=== PATIENT | female | born 1995 | race Caucasian/White ===

== ENCOUNTER 2020-08-06 05:50 | Inpatient (IN) | payer BC, OTHER ==
[~2020-08-06] VITALS: Ht 170.2 cm; Wt 91.1 kg
[2020-08-06] VITALS (25 sets, daily range): BP systolic 97–151; BP diastolic 59–88
[2020-08-06] MEDS ORDERED: D5 LR IV SOLUTION 1,000 ML IV ONE (06:07)
[2020-08-06] MEDS ORDERED: AMPICILLIN FOR IV USE 2,000 MG in WATER (STERILE) FOR INJECTION 14.8 ML IV SCH (06:14)
[2020-08-06] MEDS ORDERED: MINERAL OIL CONCENTRATE 99.9% 15 ML UDC TOP PRN (06:15)
[2020-08-06] MEDS: D5 LR IV SOLUTION 1,000 ML IV SCH ×2 (06:41→14:06)
[2020-08-06 06:48] LABS: BASOPHILS % (AUTO) 0 % (0-10); EOSINOPHILS % (AUTO) 0 % (0-10); HEMATOCRIT 40 % (35-52); HEMOGLOBIN 13.6 g/dL (11.5-16.0); LYMPHOCYTES # (AUTO) 1.4 10^3/uL (1.0-4.0); LYMPHOCYTES % (AUTO) 8 % (12-44); MEAN CORPUSCULAR HEMOGLOBIN 30 pg (25-34); MEAN CORPUSCULAR HGB CONC 34 g/dL (32-36); MEAN CORPUSCULAR VOLUME 89 fL (80-99); MEAN PLATELET VOLUME 11.4 fL (9.0-12.2); MONOCYTES # (AUTO) 0.7 10^3/uL (0.0-1.0); MONOCYTES % (AUTO) 4 % (0-12); NEUTROPHILS # (AUTO) 14.1 10^3/uL (1.8-7.8); NEUTROPHILS % (AUTO) 87 % (42-75); PLATELET COUNT 268 10^3/uL (130-400); WHITE BLOOD COUNT 16.2 10^3/uL (4.3-11.0)
[2020-08-06 07:09] LABS: LYMPHOCYTES % (MANUAL) 11 %; MONOCYTES % (MANUAL) 5 %; NEUTROPHILS % (MANUAL) 84 %; RBC MORPH NORMAL
[2020-08-06 07:51] LABS: BILIRUBIN,URINE NEGATIVE (NEGATIVE); CLARITY,URINE CLEAR; COLOR,URINE YELLOW; GLUCOSE, URINE (UA) NEGATIVE (NEGATIVE); KETONES,URINE NEGATIVE (NEGATIVE); LEUKOCYTE ESTERASE ,URINE 2+ (NEGATIVE); NITRITE,URINE NEGATIVE (NEGATIVE); PH,URINE 6.5 (5-9); PROTEIN,URINE TRACE (NEGATIVE)
[2020-08-06 07:53] LABS: BACTERIA,URINE LARGE /HPF; SQUAMOUS EPITHELIAL CELL,UR 25-50 /HPF; WBC,URINE 25-50 /HPF
[2020-08-06] MEDS: AMPICILLIN FOR IV USE 1,000 MG in WATER (STERILE) FOR INJECTION 7.4 ML IV SCH ×2 (10:50→14:06)
[2020-08-06] MEDS ORDERED: OXYTOCIN PRE-MIX DRIP 500 ML IV ONE ×2 (13:25→15:43)
[2020-08-06] MEDS ORDERED: LIDOCAINE/EPI 2% 1:200,00 (XYLOCAINE) 10 ML VIAL ONE ×2 (13:35→15:26)
--- NOTE | 2020-08-06 13:56 | History & Physical-OB ---
OB - Chief Complaint & HPI Date/Time Date of Admission: Date of Admission: Aug 06, 2020 at 06:11 Date seen by a Provider: Aug 06, 2020 Time Seen by a Provider: 08:00 Chief Complaint/History OB-Reason for Admission/Chief: Onset of Labor Hx : 1 Hx Para: 0 Expected Date of Delivery: Aug 07, 2020 Gestational Age in Weeks: 39 Gestational Age in Days: 6 History of Labs A+, antibody neg, RNI. HIV/HepB/RPR NR. GC/chlamydia neg. Glucola normal. GBS pos. Allergies and Home Medications Allergies Coded Allergies: No Known Drug Allergies (Unverified , 08/06/20) Home Medications Loratadine 10 Mg Tablet, 10 MG PO DAILY, (Reported) Magnesium Amino Acid Chelate 100 Mg Tablet, 100 MG PO DAILY, (Reported) Vit No.124/Iron/FA 1 Each Tablet, 1 EACH PO DAILY, (Reported) Patient Home Medication List Home Medication List Reviewed: Yes OB - History Hx of Present Ultrasounds: Normal mid trimester US Obstetrical Complications: None Obstetrical History Hx : 1 Hx Para: 0 Patient Past Medical History PMHx: Denies SurgHx: denies Social History/Family History Alcohol Use: Denies Use Recreational Drug Use: No Smoking Cessation: Never smoker Immunizations Tetanus Booster (TDap): Less than 5yrs (06/10/2020) Date of Influenza Vaccine: Mar 10, 2020 Rubella: not immune RPR/VDRL: Negative GBS Status: Positive HBsAG: Negative OB - Admission Exam Physical Exam Vitals: Vital Signs 08/06/20 08/06/20 12:42 13:00 Temp 36.8 Pulse 84 Resp 18 B/P (MAP) 139/83 (101) O2 Delivery Room Air HEENT: NCAT Abdomen: Non tender Extremities: Normal Cervical Dilatation: 5cm Effacement: 75% Heart Rate: 140's Accelerations: Accelerations Present Contractions on Admission: < 5 Minutes Apart Date/Time Contractions Began;: 08/05/20 at 10:30 pm Intensity: Moderate Labs Laboratory Tests Test 08/06/20 06:00 08/06/20 06:30 Range/Units Urine Color YELLOW Urine Clarity CLEAR Urine pH 6.5 5-9 Urine Specific [place] 1.010 L 1.016-1.022 Urine Protein TRACE H NEGATIVE Urine Glucose (UA) NEGATIVE NEGATIVE Urine Ketones NEGATIVE NEGATIVE Urine Nitrite NEGATIVE NEGATIVE Urine Bilirubin NEGATIVE NEGATIVE Urine Urobilinogen 0.2 < = 1.0 MG/DL Urine Leukocyte Esterase 2+ H NEGATIVE Urine RBC (Auto) 3+ H NEGATIVE Urine RBC 5-10 H /HPF Urine WBC 25-50 H /HPF Urine Squamous Epithelial Cells 25-50 H /HPF Urine Crystals NONE /LPF Urine Bacteria LARGE H /HPF Urine Casts NONE /LPF Urine Mucus NEGATIVE /LPF Urine Culture Indicated YES White Blood Count 16.2 H 4.3-11.0 10^3/uL Red Blood Count 4.51 3.80-5.11 10^6/uL Hemoglobin 13.6 11.5-16.0 g/dL Hematocrit 40 35-52 % Mean Corpuscular Volume 89 80-99 fL Mean Corpuscular Hemoglobin 30 25-34 pg Mean Corpuscular Hemoglobin Concent 34 32-36 g/dL Red Cell Distribution Width 13.1 10.0-14.5 % Platelet Count 268 130-400 10^3/uL Mean Platelet Volume 11.4 9.0-12.2 fL Immature Granulocyte % (Auto) 1 % Neutrophils (%) (Auto) 87 H 42-75 % Lymphocytes (%) (Auto) 8 L 12-44 % Monocytes (%) (Auto) 4 0-12 % Eosinophils (%) (Auto) 0 0-10 % Basophils (%) (Auto) 0 0-10 % Neutrophils # (Auto) 14.1 H 1.8-7.8 10^3/uL Lymphocytes # (Auto) 1.4 1.0-4.0 10^3/uL Monocytes # (Auto) 0.7 0.0-1.0 10^3/uL Eosinophils # (Auto) 0.0 0.0-0.3 10^3/uL Basophils # (Auto) 0.0 0.0-0.1 10^3/uL Immature Granulocyte # (Auto) 0.1 0.0-0.1 10^3/uL Neutrophils % (Manual) 84 % Lymphocytes % (Manual) 11 % Monocytes % (Manual) 5 % Blood Morphology Comment NORMAL OB - Assessment/Plan/Diagnosis Assessment Assessment: active labor, group B positive strep Admission Dx Active labor 39 weeks gestation GBS positive Rubella non-immune Admission Status: Inpatient Order (span 2 midnights) Reason for Inpatient Admission: labor, delivery and course Plan Plan: Expectant Management Other Plan Ampicillin for GBS pos MMR HOLLY HERNANDEZ MD Aug 06, 2020 13:56
[2020-08-06] MEDS ORDERED: CATHETER FLUSH 10 ML SYR IV SCH (14:00)
[2020-08-06] MEDS ORDERED: MAGN100T5 PO (14:09)
[2020-08-06] MEDS ORDERED: LORA10TA7 PO (14:09)
[2020-08-06] MEDS ORDERED: PREN-142 PO (14:09)
[2020-08-06] MEDS: OXYTOCIN PRE-MIX DRIP 500 ML IV SCH ×2 (15:18→15:48)
[2020-08-06] MEDS ORDERED: WITCH HAZEL(TUCKS) 40 EA JAR TOP PRN (16:15)
[2020-08-06] MEDS ORDERED: TETANUS,DIPTH,PERTUSS P/F (BOOSTRIX) 0.5 ML VIAL IM ONE (16:15)
[2020-08-06] MEDS ORDERED: BENZOCAINE/MENTHOL (DERMOPLAST) 60 ML CAN TP PRN (16:15)
[2020-08-06] MEDS ORDERED: MEASLES,MUMPS,RUBELLA 1 EA INJ SQ ONE (16:15)
--- NOTE | 2020-08-06 16:51 | OB Labor & Delivery Record ---
Vag Delivery Note Vag Delivery Note Date of Delivery: 08/06/20 Preoperative Diagnosis: Carol Waddell is a (24 /Para 1 / 0,Gestational Age (wks)39with 6 days Postoperative Diagnosis: Same Surgeon: HOLLY HERNANDEZ Anesthesia: None Delivery Type: Spontaneous vaginal delivery Findings: Viable female infant, apgars 9/9, weight 7#7 Lacerations: Right vaginal wall, right labial, second degree perineal, left periurethral Intact placenta with 3 vessel cord. No nuchal cord, body cord or shoulder dystocia Estimated Blood Loss: 400 ml Complications: None Condition: Stable Description of Procedure: The patient is a 24 year old female who presented in active labor. She was admitted and informed consent was obtained. Her labor course was unremarkable. She progressed to complete dilatation and began to push. She was then set up for delivery. The infant's head was delivered atraumatically in the KARTIK position. The shoulders and remainder of the infant's body were then delivered without difficulty. Upon delivery, the infant was vigorous and placed on maternal abdomen. After a delay, the cord was doubly clamped and cut and the remained on maternal abdomen. An intact placenta with 3-vessel cord delivered via [place]ien and there was found to be minimal bleeding.~ Vigorous fundal massage was performed and the fundus was found to be firm. IV oxytocin was given. Examination of the vagina and perineum revealed a right vaginal wall laceration repaired in simple running fashion with 3-0 rapide. Second degree perineal laceration repaired in the usual fashion with 3-0 rapide. Left periurethral laceration repaired in simple running fashion. Right labial external laceration repaired in subcutaneous running fashion with 3-0 rapide. Following the repair, sponge, instrument and needle counts were correct. Mom and baby were both in stable condition in the labor suite. Vitals - Labs Vital Signs - I&O Vital Signs Date Time Temp Pulse Resp B/P (MAP) Pulse Ox O2 Delivery O2 Flow Rate FiO2 08/06/20 16:30 36.8 90 18 126/72 (90) Room Air 08/06/20 16:15 100 18 144/69 (94) Room Air 08/06/20 16:04 99 18 139/79 (99) Room Air 08/06/20 16:00 109 18 118/59 (78) Room Air 08/06/20 15:30 144 18 141/85 (103) Room Air 08/06/20 15:00 88 18 133/82 (99) Room Air 08/06/20 14:30 90 18 125/77 (93) Room Air 08/06/20 14:00 90 18 123/73 (90) Room Air 08/06/20 13:30 113 18 131/84 (100) Room Air 08/06/20 13:00 84 18 139/83 (101) Room Air 08/06/20 12:42 36.8 08/06/20 12:30 18 Room Air 08/06/20 12:00 81 18 130/83 (99) Room Air 08/06/20 11:30 75 18 129/76 (93) Room Air 08/06/20 11:00 36.4 75 18 124/80 (95) Room Air 08/06/20 10:30 76 18 129/66 (87) Room Air 08/06/20 10:00 89 18 151/68 (95) Room Air 08/06/20 09:20 93 18 118/66 (83) Room Air 08/06/20 08:50 91 18 130/88 (102) Room Air 08/06/20 07:50 36.7 93 18 122/83 (96) Room Air 08/06/20 06:38 95 18 137/86 (103) Room Air 08/06/20 06:08 36.0 122 18 131/80 (97) 97 Room Air 08/06/20 06:08 36.0 122 18 97 Room Air Labs Laboratory Tests 08/06/20 06:00: Urine Color YELLOW, Urine Clarity CLEAR, Urine pH 6.5, Urine Specific [place] 1.010L, Urine Protein TRACEH, Urine Glucose (UA) NEGATIVE, Urine Ketones N EGATIVE, Urine Nitrite NEGATIVE, Urine Bilirubin NEGATIVE, Urine Urobilinogen 0.2, Urine Leukocyte Esterase 2+H, Urine RBC (Auto) 3+H, Urine RBC 5-10H, Urine WBC 25-50H, Urine Squamous Epithelial Cells 25-50H, Urine Crystals NONE, Urine Bacteria LARGEH, Urine Casts NONE, Urine Mucus NEGATIVE, Urine Culture Indicated YES 08/06/20 06:30: White Blood Count 16.2H, Red Blood Count 4.51, Hemoglobin 13.6, Hematocrit 40, Mean Corpuscular Volume 89, Mean Corpuscular Hemoglobin 30, Mean Corpuscular Hemoglobin Concent 34, Red Cell Distribution Width 13.1, Platelet Count 268, Mean Platelet Volume 11.4, Immature Granulocyte % (Auto) 1, Neutrophils (%) (Auto) 87H, Lymphocytes (%) (Auto) 8L, Monocytes (%) (Auto) 4, Eosinophils (%) (Auto) 0, Basophils (%) (Auto) 0, Neutrophils # (Auto) 14.1H, Lymphocytes # (Auto) 1.4, Monocytes # (Auto) 0.7, Eosinophils # (Auto) 0.0, Basophils # (Auto) 0.0, Immature Granulocyte # (Auto) 0.1, Neutrophils % (Manual) 84, Lymphocytes % (Manual) 11, Monocytes % (Manual) 5, Blood Morphology Comment NORMAL 08/06/20 10:13: HOLLY HERNANDEZ MD Aug 06, 2020 16:51
[2020-08-06] MEDS ORDERED: ACETAMINOPHEN 500 MG TAB (TYLENOL) ONE (17:37)
[2020-08-06] MEDS: IBUPROFEN 600 MG (MOTRIN) TAB PO SCH ×2 (17:43→23:30)
[2020-08-06] MEDS: ACETAMINOPHEN 500 MG TAB (TYLENOL) PO SCH (17:43)
[2020-08-06] MEDS: DOCUSATE SODIUM 100 MG (COLACE) CAP PO SCH (20:52)
[2020-08-07 01:08] VITALS: BP 113/61
[2020-08-07] MEDS: ACETAMINOPHEN 500 MG TAB (TYLENOL) PO SCH ×3 (03:54→21:32)
[2020-08-07 04:00] VITALS: BP 112/62
[2020-08-07 06:36] LABS: BASOPHILS % (AUTO) 0 % (0-10); EOSINOPHILS # (AUTO) 0.1 10^3/uL (0.0-0.3); EOSINOPHILS % (AUTO) 1 % (0-10); HEMATOCRIT 27 % (35-52); HEMOGLOBIN 9.1 g/dL (11.5-16.0); LYMPHOCYTES # (AUTO) 3.1 10^3/uL (1.0-4.0); LYMPHOCYTES % (AUTO) 23 % (12-44); MEAN CORPUSCULAR HEMOGLOBIN 30 pg (25-34); MEAN CORPUSCULAR HGB CONC 33 g/dL (32-36); MEAN CORPUSCULAR VOLUME 91 fL (80-99); MEAN PLATELET VOLUME 11.2 fL (9.0-12.2); MONOCYTES # (AUTO) 1.1 10^3/uL (0.0-1.0); MONOCYTES % (AUTO) 8 % (0-12); NEUTROPHILS # (AUTO) 9.1 10^3/uL (1.8-7.8); NEUTROPHILS % (AUTO) 68 % (42-75); PLATELET COUNT 179 10^3/uL (130-400); WHITE BLOOD COUNT 13.5 10^3/uL (4.3-11.0)
[2020-08-07] MEDS: IBUPROFEN 600 MG (MOTRIN) TAB PO SCH ×3 (06:44→18:08)
[2020-08-07] MEDS: DOCUSATE SODIUM 100 MG (COLACE) CAP PO SCH ×2 (08:56→21:32)
[2020-08-07 08:57] VITALS: BP 103/63
[2020-08-07 12:04] VITALS: BP 115/64
--- NOTE | 2020-08-07 14:59 | Progress Note ---
Subjective Subjective/Events-last exam Doing well post vaginal delivery. Minimal lochia. Cramping only with . Objective Exam Last Set of Vital Signs Vital Signs Date Time Temp Pulse Resp B/P (MAP) Pulse Ox O2 Delivery O2 Flow Rate FiO2 08/07/20 12:04 36.8 117 18 115/64 (81) 97 Room Air Capillary Refill : Less Than 3 Seconds I&O Intake and Output 08/07/20 00:00 Intake Total 2037.0 ml Balance 2037.0 ml Intake IV Total 2037.0 ml General: Alert, Oriented X3, Cooperative Neuro: Normal Speech Results/Procedures Lab Laboratory Tests 08/07/20 06:20: White Blood Count 13.5H, Red Blood Count 2.99L, Hemoglobin 9.1#L, Hematocrit 27L , Mean Corpuscular Volume 91, Mean Corpuscular Hemoglobin 30, Mean Corpuscular Hemoglobin Concent 33, Red Cell Distribution Width 13.1, Platelet Count 179, Mean Platelet Volume 11.2, Immature Granulocyte % (Auto) 0, Neutrophils (%) (Auto) 68, Lymphocytes (%) (Auto) 23, Monocytes (%) (Auto) 8, Eosinophils (%) (Auto) 1, Basophils (%) (Auto) 0, Neutrophils # (Auto) 9.1H, Lymphocytes # (Auto) 3.1, Monocytes # (Auto) 1.1H, Eosinophils # (Auto) 0.1, Basophils # (Auto) 0.0, Immature Granulocyte # (Auto) 0.1 Assessment/Plan Assessment/Plan (1) Status post vaginal delivery Assessment & Plan: Vaginal delivery on 08/06/[address] Jaimes. Hb 9.1, asymptomatic. Routine care. Anticipate DC home tomorrow. MARY KAY ALATORRE DO Aug 07, 2020 14:59
[2020-08-07 16:15] VITALS: BP 132/60
[2020-08-07 21:30] VITALS: BP 132/79
[2020-08-08 00:05] VITALS: BP 114/68
[2020-08-08] MEDS: IBUPROFEN 600 MG (MOTRIN) TAB PO SCH ×3 (00:09→11:48)
[2020-08-08] MEDS: ACETAMINOPHEN 500 MG TAB (TYLENOL) PO SCH (06:29)
[2020-08-08 06:30] VITALS: BP 106/70
[2020-08-08] MEDS: DOCUSATE SODIUM 100 MG (COLACE) CAP PO SCH (09:56)
--- NOTE | 2020-08-08 10:43 | Discharge Summary ---
Diagnosis/Chief Complaint Date of Admission Aug 06, 2020 at 06:11 Date of Discharge 08/08/2020 Admission Diagnosis Admission Diagnosis Third Trimester 40 week gestation Discharge Diagnosis Problems/Diagnosis: (1) Status post vaginal delivery Assessment & Plan: Vaginal delivery on 08/06/[address] Jaimes. Hb 9.1, asymptomatic. Routine care. Anticipate DC home tomorrow. Discharge Summary-Simple/Stand Procedures Discharge Physical Examination Allergies: Coded Allergies: No Known Drug Allergies (Unverified , 08/06/20) Vitals & I&Os Vital Sign - Last 12Hours Date Time Temp Pulse Resp B/P (MAP) Pulse Ox O2 Delivery O2 Flow Rate FiO2 08/08/20 06:30 36.7 81 16 106/70 (82) 97 Room Air General Appearance: Alert, Oriented X3, Cooperative, No Acute Distress HEENT: Mucous Memb Moist/[place] Respiratory: Clear to Auscultation, Normal Air Movement Cardiovascular: Regular Rate, No Murmurs Abdominal: Normal Bowel Sounds, Soft, No Tenderness, No Masses, Other (fundus firm and below umbilicus) Extremities: No Edema, No Tenderness/Swelling Skin: No Rashes, No Breakdown Neuro: Normal Speech, Strength at 5/5 X4 Ext, Cranial Nerves 3-12 NL Hospital Course Was the Problem List Reviewed?: Yes See final discharge diagnosis. Discussion & Recommendations 24 yo G1 now P1 delivered term female infant via Discharge Condition at discharge Stable Instructions to patient/family Please see electronic discharge instructions given to patient. Discharge Medications Reviewed and agree with Discharge Medication list on patient's Discharge Instruction sheet HARRIS ORDONEZ MD Aug 08, 2020 10:43
[2020-08-08] MEDS ORDERED: IBUP-844 PO (10:44)
--- NOTE | 2020-08-08 10:45 | Discharge Summary ---
Discharge Inst-[facility] Reconcile Patient Problems Problems Reviewed?: Yes Depart Medications New, Converted or Re-Newed RX: Transmitted to Pharmacy New Medications: Ibuprofen (Ibu) 600 Mg Tablet 600 MG PO Q6HR, #60 TAB Continued Medications: Loratadine (Loratadine) 10 Mg Tablet 10 MG PO DAILY, TAB Magnesium Amino Acid Chelate (Magnesium) 100 Mg Tablet 100 MG PO DAILY, TAB Vit No.124/Iron/FA ( Vitamin Tablet) 1 Each Tablet 1 EACH PO DAILY, TAB Follow Up/Instructions Goal/Follow Up: [address] Jaimes Activity Activity: Activity as Tolerated Driving Instructions: You May Drive NO SMOKING: NO SMOKING Nothing Inside Vagina: No Douching, No [place], No Tampons Diet Discharge Diet: No Restrictions Symptoms to Report to : Swelling Increased, Bleeding Excessive, Fever Over 101 Degrees F, Pain/Pressure in Chest, Heart Beat Irreg/Pounding For Any Problems or Questions: Contact Your Physician HARRIS ORDONEZ MD Aug 08, 2020 10:45
== END 2020-08-08 13:20 | disposition home or self-care (01) | DRG 807 ==
LOC: WSo 05:50 → LDRP 05:52 → WSo 06:10 → LDRP 06:11
PROVIDERS: ADMIT Family Medicine; ATTEND Family Medicine
PROC: 10E0XZZ Delivery of Products of Conception, External Approach (ICD-10-PCS; principal; 2020-08-06)
PROC: 0KQM0ZZ Repair Perineum Muscle, Open Approach (ICD-10-PCS; 2020-08-06)
DX: O99.824 Streptococcus B carrier state complicating childbirth (principal); Z37.0 Single live birth; Z3A.39 39 weeks gestation of pregnancy; O70.1 Second degree perineal laceration during delivery; O71.82 Other specified trauma to perineum and vulva; Z20.822 Contact with and (suspected) exposure to COVID-19
CPT/HCPCS: 36415; 81000; 85007; 85025; 85027; 86780; 86850; 86900; 86901; 87088; 87635; 90707; 99212

== ENCOUNTER → 2020-10-13 | Outpatient (CLI) | payer BC ==
[~2020-10-13] MED LIST: IBUP-844 PO; LORA10TA7 PO; MAGN100T5 PO; PREN-142 PO
--- NOTE | 2020-10-13 16:39 | Diagnostic Imaging Report ---
INDICATION: 25-year-old female who is breast-feeding, 2 months . Patient does have redness and warmth of the right breast. FINDINGS: Sonographic interrogation of an area of lump in the right breast was performed. This correlates to the 11 o'clock location 6 cm from the nipple. There is a mixed solid and cystic mass at this location measuring 2.7 x 2.1 x 2.3 cm. This demonstrates posterior acoustic enhancement. No internal vascularity is seen. No other masses are identified. IMPRESSION: Mixed echogenicity lesion at the area of palpable abnormality in the right breast 11 o'clock location. This could represent a lactating adenoma in a breast-feeding patient. A small abscess cannot be entirely excluded. Neoplasm would be unlikely due to the patient's age as well as the appearance of the lesion with posterior enhancement. Even so, a short interval sonographic followup is recommended to confirm stability or resolution. A repeat study could be performed in 2-3 months. ACR BI-RADS Category 3: Probably benign findings. Dictated by: Dictated on workstation # [id number]
== END ==
LOC: RAD 14:15
PROVIDERS: ATTEND Family Medicine
DX: N63.11 Unspecified lump in the right breast, upper outer quadrant (principal)

== ENCOUNTER → 2021-01-11 | Outpatient (CLI) | payer BC ==
--- NOTE | 2021-01-11 15:30 | Diagnostic Imaging Report ---
INDICATION: At comparison study of 3 months ago the patient had a tender red and somewhat warm lump and a complex fluid collection in the region of palpable fullness. She returns for a three-month follow-up. FINDINGS: At the 11:00 position roughly 6 cm from the nipple in the same location of the prior, no significant residual fluid composition is found. There is hypoechogenic and hypervascular tissue in that bed, likely some residual inflammation having improved with complete or near complete resolution of the previous discrete fluid collection itself. This has a tract approaching the skin surface superficially but per the patient, there was never any superficial draining wound and this lactating patient reported no appreciable abnormality to the milk. While today's exam is felt favorable, given the absence of complete resolution I do feel an additional 3 month follow-up is appropriate. IMPRESSION: There is likely some residual inflammation and hypervascular tissue in the site of previous complex mixed echogenicity fluid collection. Overall favorable interval changes but a continued follow-up with a repeat ultrasound in 3 months time recommended for this likely benign finding. BI-RADS Category 3. Three month follow-up right breast ultrasound recommended. ACR BI-RADS Category 3: Probably benign findings. Result letter will be mailed to the patient. Note: At least 10% of breast cancer is not imaged by mammography. Dictated by: Dictated on workstation # [id number]
== END ==
LOC: RAD 14:09
PROVIDERS: ATTEND Family Medicine
DX: N63.10 Unspecified lump in the right breast, unspecified quadrant (principal)

== ENCOUNTER → 2021-05-06 | Outpatient (CLI) | payer BC ==
--- NOTE | 2021-05-06 15:36 | Diagnostic Imaging Report ---
INDICATION: Prior history of infection with ill-defined region of hypoechogenicity in the right breast. This did show improvement on the more recent breast ultrasound from 01/11/2021. Patient presents for follow-up. CORRELATION is made with breast ultrasound from 01/11/2021. The 11:00 location of the right breast was evaluated. There continues to be somewhat ill-defined region of hypoechogenicity at this location, 6 cm from the nipple however this shows continued improvement. This area measures approximately 9 mm x 11 mm x 12 mm. No fluid collection is seen. This does extend towards the skin surface. No new abnormality is identified. IMPRESSION: BI-RADS 3 Continued improvement in the area of inflammation at the 11:00 location of the right breast, 6 cm from the nipple. This has not completely resolved therefore additional follow-up in 6 months is recommended to show continued improvement. ACR BI-RADS Category 3: Probably benign findings. Result letter will be mailed to the patient. Note: At least 10% of breast cancer is not imaged by mammography. Dictated by: Dictated on workstation # [id number]
== END ==
LOC: RAD 12:56
PROVIDERS: ATTEND Family Medicine
DX: N63.11 Unspecified lump in the right breast, upper outer quadrant (principal)